=== PATIENT | male | born 1955 | race African-American/Black ===

== ENCOUNTER 2016-12-27 19:39 | Inpatient (IN) | payer MEDICARE, OTHER ==
[~2016-12-27] VITALS: Ht 175.3 cm; Wt 88.5 kg
[~2016-12-27 19:39] MED LIST: ASPIRIN81 MG ORAL; CALCIUM CARBON300 MG PO; COLACE100 MG ORAL; DOXYCYCLINE MO100 M2 PO; HYDROCORTISONE25 GM TP; LISINOPRIL5 MG ORAL; TAMSULOSIN HCL0.4 MG ORAL; TYLENOL325 MG ORAL
[2016-12-27 19:53] VITALS: BP 108/64
[2016-12-27] MEDS ORDERED: DuoNeb 0.5-3(2.5)mg/3ml neb HHN ONE (20:00)
[2016-12-27] MEDS ORDERED: Unasyn 3gm Inj ONE (20:21)
[2016-12-27] MEDS: Ampicillin/Sulbactam Sod 3 GM in NS 110 ML IV SCH (20:22)
[2016-12-27] MEDS ORDERED: DEPAKOTE250 MG PO (20:35)
[2016-12-27] MEDS ORDERED: PROSCAR5 MG ORAL (20:35)
[2016-12-27] MEDS ORDERED: MILK OF MA2400 MG/10 ORAL (20:35)
[2016-12-27] MEDS ORDERED: ATIVAN1 MG ORAL (20:35)
[2016-12-27] MEDS ORDERED: ZYPREXA5 MG ORAL (20:35)
[2016-12-27] MEDS ORDERED: TYLENOL325 MG ORAL (20:35)
[2016-12-27] MEDS ORDERED: CALCIUM500 M3 PO (20:35)
[2016-12-27 20:51] LABS: BASOPHILS % (AUTO) 1.3 % (0.0-2.0); LYMPHOCYTES % (AUTO) 14.8 % (20.0-45.0); MEAN CORPUSCULAR HEMOGLOBIN 31.3 PG (27.0-31.0); MEAN CORPUSCULAR HGB CONC 33.4 G/DL (32.0-36.0); MEAN CORPUSCULAR VOLUME 94 FL (80-99); MEAN PLATELET VOLUME 5.9 FL (6.5-10.1); MONOCYTES % (AUTO) 13.6 % (1.0-10.0); NEUTROPHILS % (AUTO) 67.3 % (45.0-75.0); PLATELET COUNT 209 K/UL (150-450); RED CELL DISTRIBUTION WIDTH 11.8 % (11.6-14.8); WHITE BLOOD COUNT 9.3 K/UL (4.8-10.8)
[2016-12-27 21:05] LABS: TROPONIN I < 0.30 ng/mL (<=0.30)
[2016-12-27 21:08] LABS: ALANINE AMINOTRANSFERASE 10 U/L (3-41); ASPARTATE AMINO TRANSFERASE 12 U/L (5-40); CALCIUM 9.4 mg/dL (8.6-10.2); CARBON DIOXIDE 29 mEQ/L (20-30); CREATININE 0.7 mg/dL (0.7-1.2); GLOMERULAR FILTRATION RATE > 60 mL/min (>60); TOTAL PROTEIN 7.1 g/dL (6.6-8.7)
[2016-12-27 21:09] LABS: ANION GAP 11 (5-15); CHLORIDE 99 mEQ/L (98-107); HEMOLYSIS 6; POTASSIUM 3.8 mEQ/L (3.4-4.9); SODIUM 139 mEQ/L (135-145)
[2016-12-27 21:18] LABS: CKMB < 1.5 ng/mL (< 6.7)
[2016-12-27 21:37] VITALS: BP 100/48
[2016-12-28] VITALS: BP 107/65
[2016-12-28] MEDS ORDERED: Milk of Magnesia 30ml Ud ORAL PRN (00:30)
[2016-12-28] MEDS: LORazepam 1mg tab ORAL PRN ×2 (00:50→09:42)
[2016-12-28] MEDS ORDERED: Unasyn 3gm Inj ONE (02:38)
[2016-12-28] MEDS: Ampicillin/Sulbactam Sod 3 GM in NS 110 ML IV SCH (02:51)
--- NOTE | 2016-12-28 04:35 | Emergency Room Report ---
History of Present Illness General Chief Complaint: General Complaint Source: Patient, Medical Record, EMS Present Illness HPI This is a 61-year-old male who presented after increased skin rash as well as increased difficulty breathing. Patient noted have prior history of COPD. He had not been taking her inhalers. He had been noted to have increased itchy rash to his face trunk and extremities. He was noted to have multiple patches of the ulcerations. The patient was then for possible impetigo. Allergies: Coded Allergies: No Known Allergies (Unverified , 05/03/15) Patient History Past Medical History: see triage record Reviewed Nursing Documentation: PMH: Agreed, PSxH: Agreed Nursing Documentation-PMH Past Medical History: No History, Except For Hx Hypertension: Yes Hx Cancer: No Hx Neurological Problems: Yes Hx Seizures: Yes Hx Weakness: Yes - LEFT ARM Review of Systems All Other Systems: negative except mentioned in HPI Physical Exam Vital Signs Date Time Temp Pulse Resp B/P Pulse Ox O2 Delivery O2 Flow Rate FiO2 12/27/16 19:33 99.9 85 16 109/66 93 Room Air Sp02 EP Interpretation: reviewed, normal General Appearance: normal inspection, well appearing, alert, GCS 15, mild distress Head: atraumatic ENT: normal ENT inspection, hearing grossly normal, normal voice Neck: normal inspection, full range of motion, supple, no bony tend Respiratory: normal inspection, normal breath sounds, no respiratory distress, no retraction, wheezing, expiration Cardiovascular #1: regular rate, rhythm, no edema Gastrointestinal: normal inspection, normal bowel sounds, non tender, soft, no guarding, no hernia Genitourinary: no CVA tenderness Musculoskeletal: normal inspection, back normal, normal range of motion Neurologic: normal inspection, alert, oriented x3, responsive, speech normal Psychiatric: normal inspection, judgement/insight normal, mood/affect normal Skin: rash - multiple excoriated ulcers to different areas. Left upper extremity appears somewhat infected. Medical Decision Making Diagnostic Impression: Primary Impression: Encounter for generalized patient complaints Additional Impressions: COPD exacerbation Cellulitis of forearm, left ER Course Patient presented for skin rash. Differential diagnosis included wasn't limited to cellulitis, impetigo, abscess, among others. Patient is also noted to have some shortness of breath consistent with COPD. Patient given breathing treatment. Patient was noted to have some improvement. Patient continued to have some difficulty with wheezing. Srinivas Yeager contacted for inpatient management due to the patient's condition and comorbidities. Labs Test 12/27/16 20:20 White Blood Count 9.3 K/UL (4.8-10.8) Red Blood Count 4.30 M/UL (4.70-6.10) Hemoglobin 13.4 G/DL (14.2-18.0) Hematocrit 40.2 % (42.0-52.0) Mean Corpuscular Volume 94 FL (80-99) Mean Corpuscular Hemoglobin 31.3 PG (27.0-31.0) Mean Corpuscular Hemoglobin Concent 33.4 G/DL (32.0-36.0) Red Cell Distribution Width 11.8 % (11.6-14.8) Platelet Count 209 K/UL (150-450) Mean Platelet Volume 5.9 FL (6.5-10.1) Neutrophils (%) (Auto) 67.3 % (45.0-75.0) Lymphocytes (%) (Auto) 14.8 % (20.0-45.0) Monocytes (%) (Auto) 13.6 % (1.0-10.0) Eosinophils (%) (Auto) 3.0 % (0.0-3.0) Basophils (%) (Auto) 1.3 % (0.0-2.0) Sodium Level 139 mEQ/L (135-145) Potassium Level 3.8 mEQ/L (3.4-4.9) Chloride Level 99 mEQ/L (98-107) Carbon Dioxide Level 29 mEQ/L (20-30) Anion Gap 11 (5-15) Blood Urea Nitrogen 9 mg/dL (7-23) Creatinine 0.7 mg/dL (0.7-1.2) Estimat Glomerular Filtration Rate > 60 mL/min (>60) Glucose Level 94 mg/dL (74-106) Lactic Acid Level 1.00 mmol/L (0.66-2.22) Calcium Level 9.4 mg/dL (8.6-10.2) Total Bilirubin 0.3 mg/dL (0.0-1.2) Aspartate Amino Transf (AST/SGOT) 12 U/L (5-40) Alanine Aminotransferase (ALT/SGPT) 10 U/L (3-41) Alkaline Phosphatase 90 U/L (40-129) Total Creatine Kinase 49 U/L (38-174) Creatine Kinase MB < 1.5 ng/mL (< 6.7) Creatine Kinase MB Relative Index Troponin I < 0.30 ng/mL (<=0.30) Total Protein 7.1 g/dL (6.6-8.7) Albumin 3.7 g/dL (3.5-5.2) Globulin 3.4 g/dL Albumin/Globulin Ratio 1.0 (1.0-2.7) Last Vital Signs Date Time Temp Pulse Resp B/P Pulse Ox O2 Delivery O2 Flow Rate FiO2 12/28/16 00:00 97.7 20 107/65 95 Room Air 12/27/16 22:50 82 Status: unchanged Disposition: ADMITTED INPATIENT Condition: Serious Referrals: Srinivas Casillas MD (PCP) Avelino Evangelista Dec 28, 2016 04:35
[2016-12-28 07:20] LABS: BASOPHILS % (AUTO) 1.1 % (0.0-2.0); EOSINOPHILS % (AUTO) 3.2 % (0.0-3.0); LYMPHOCYTES % (AUTO) 11.8 % (20.0-45.0); MEAN CORPUSCULAR HEMOGLOBIN 32.1 PG (27.0-31.0); MEAN CORPUSCULAR HGB CONC 33.4 G/DL (32.0-36.0); MEAN CORPUSCULAR VOLUME 96 FL (80-99); MEAN PLATELET VOLUME 5.8 FL (6.5-10.1); MONOCYTES % (AUTO) 12.8 % (1.0-10.0); NEUTROPHILS % (AUTO) 71.2 % (45.0-75.0); PLATELET COUNT 202 K/UL (150-450); RED BLOOD COUNT 4.26 M/UL (4.70-6.10); RED CELL DISTRIBUTION WIDTH 11.8 % (11.6-14.8); WHITE BLOOD COUNT 8.1 K/UL (4.8-10.8)
[2016-12-28 07:54] LABS: ALANINE AMINOTRANSFERASE 9 U/L (3-41); ALBUMIN/GLOBULIN RATIO 0.9 (1.0-2.7); ANION GAP 9 (5-15); ASPARTATE AMINO TRANSFERASE 12 U/L (5-40); CALCIUM 9.2 mg/dL (8.6-10.2); CARBON DIOXIDE 30 mEQ/L (20-30); CHLORIDE 102 mEQ/L (98-107); CREATININE 0.8 mg/dL (0.7-1.2); GLOMERULAR FILTRATION RATE > 60 mL/min (>60); HEMOLYSIS 7; POTASSIUM 3.4 mEQ/L (3.4-4.9); SODIUM 141 mEQ/L (135-145)
[2016-12-28 08:00] VITALS: BP 116/68
--- NOTE | 2016-12-28 08:39 | Infectious Diseases Prog Note ---
Assessment/Plan Problems: (1) Impetigo bullosa Assessment & Plan: will sart him on penicillin VK and doxycycline, and mupericion topical , consult wound care , send blood culture , and wound culture (2) COPD exacerbation Assessment & Plan: on doxycycline, and nebulizers, titrate oxygen as needed (3) Cellulitis of forearm, left Assessment & Plan: on penicillin VK and doxycycline (4) HTN (hypertension) Assessment & Plan: continue meds, monitor blood pressure (5) Seizure Assessment & Plan: continue meds. Subjective Allergies: Coded Allergies: No Known Allergies (Unverified , 05/03/15) Objective Vital Signs Last 24 Hour Vital Signs Date Time Temp Pulse Resp B/P Pulse Ox O2 Delivery O2 Flow Rate FiO2 12/28/16 00:00 97.7 20 107/65 95 Room Air 12/27/16 22:50 82 15 108/64 96 Room Air 12/27/16 21:37 98.8 73 15 100/48 96 Room Air 12/27/16 20:10 83 21 99 Room Air 12/27/16 20:00 81 22 98 Room Air 12/27/16 19:59 81 22 Room Air 12/27/16 19:53 98.8 82 15 108/64 96 Room Air 12/27/16 19:33 99.9 85 16 109/66 93 Room Air Height (Feet): 5 Height (Inches): 9.00 Weight (Pounds): 195 Laboratory Tests Test 12/27/16 20:20 12/28/16 06:55 White Blood Count 9.3 K/UL (4.8-10.8) 8.1 K/UL (4.8-10.8) Red Blood Count 4.30 M/UL (4.70-6.10) L 4.26 M/UL (4.70-6.10) L Hemoglobin 13.4 G/DL (14.2-18.0) L 13.7 G/DL (14.2-18.0) L Hematocrit 40.2 % (42.0-52.0) L 40.9 % (42.0-52.0) L Mean Corpuscular Volume 94 FL (80-99) 96 FL (80-99) Mean Corpuscular Hemoglobin 31.3 PG (27.0-31.0) H 32.1 PG (27.0-31.0) H Mean Corpuscular Hemoglobin Concent 33.4 G/DL (32.0-36.0) 33.4 G/DL (32.0-36.0) Red Cell Distribution Width 11.8 % (11.6-14.8) 11.8 % (11.6-14.8) Platelet Count 209 K/UL (150-450) 202 K/UL (150-450) Mean Platelet Volume 5.9 FL (6.5-10.1) L 5.8 FL (6.5-10.1) L Neutrophils (%) (Auto) 67.3 % (45.0-75.0) 71.2 % (45.0-75.0) Lymphocytes (%) (Auto) 14.8 % (20.0-45.0) L 11.8 % (20.0-45.0) L Monocytes (%) (Auto) 13.6 % (1.0-10.0) H 12.8 % (1.0-10.0) H Eosinophils (%) (Auto) 3.0 % (0.0-3.0) 3.2 % (0.0-3.0) H Basophils (%) (Auto) 1.3 % (0.0-2.0) 1.1 % (0.0-2.0) Sodium Level 139 mEQ/L (135-145) 141 mEQ/L (135-145) Potassium Level 3.8 mEQ/L (3.4-4.9) 3.4 mEQ/L (3.4-4.9) Chloride Level 99 mEQ/L (98-107) 102 mEQ/L (98-107) Carbon Dioxide Level 29 mEQ/L (20-30) 30 mEQ/L (20-30) Anion Gap 11 (5-15) 9 (5-15) Blood Urea Nitrogen 9 mg/dL (7-23) 13 mg/dL (7-23) Creatinine 0.7 mg/dL (0.7-1.2) 0.8 mg/dL (0.7-1.2) Estimat Glomerular Filtration Rate > 60 mL/min (>60) > 60 mL/min (>60) Glucose Level 94 mg/dL (74-106) 100 mg/dL (74-106) Lactic Acid Level 1.00 mmol/L (0.66-2.22) Calcium Level 9.4 mg/dL (8.6-10.2) 9.2 mg/dL (8.6-10.2) Total Bilirubin 0.3 mg/dL (0.0-1.2) 0.2 mg/dL (0.0-1.2) Aspartate Amino Transf (AST/SGOT) 12 U/L (5-40) 12 U/L (5-40) Alanine Aminotransferase (ALT/SGPT) 10 U/L (3-41) 9 U/L (3-41) Alkaline Phosphatase 90 U/L (40-129) 93 U/L (40-129) Total Creatine Kinase 49 U/L (38-174) Creatine Kinase MB < 1.5 ng/mL (< 6.7) Creatine Kinase MB Relative Index Troponin I < 0.30 ng/mL (<=0.30) Total Protein 7.1 g/dL (6.6-8.7) 7.0 g/dL (6.6-8.7) Albumin 3.7 g/dL (3.5-5.2) 3.4 g/dL (3.5-5.2) L Globulin 3.4 g/dL 3.6 g/dL Albumin/Globulin Ratio 1.0 (1.0-2.7) 0.9 (1.0-2.7) L Current Medications Medications (Trade) Dose Ordered Sig/Julio Route PRN Reason Start Time Stop Time Status Last Admin Dose Admin Acetaminophen (Tylenol) 325 mg Q4H PRN ORAL For Pain (pain scale 1-2) 12/28/16 00:40 01/27/17 00:29 Acetaminophen (Tylenol) 650 mg Q4H PRN ORAL Pain Scale (3-5) 12/28/16 00:30 01/27/17 00:29 Aspirin (ASA) 81 mg DAILY ORAL 12/28/16 09:00 01/27/17 08:59 Calcium Carbonate (Tums) 500 mg DAILY ORAL 12/28/16 09:00 01/27/17 08:59 Divalproex Sodium (Depakote) 500 mg TID ORAL 12/28/16 09:00 01/27/17 08:59 Docusate Sodium (Colace) 100 mg BID ORAL 12/28/16 09:00 01/27/17 08:59 Finasteride (Proscar) 5 mg DAILY ORAL 12/28/16 09:00 01/27/17 08:59 Lisinopril (Zestril) 5 mg DAILY ORAL 12/28/16 09:00 01/27/17 08:59 Lorazepam (Ativan) 1 mg Q12H PRN ORAL For Anxiety 12/28/16 00:30 01/04/17 00:29 12/28/16 00:50 Magnesium Hydroxide (Mom) 30 ml DAILY PRN ORAL Constipation 12/28/16 00:30 01/27/17 00:29 Olanzapine (ZyPREXA) 5 mg BEDTIME ORAL 12/28/16 21:00 01/27/17 20:59 Tamsulosin HCl (Flomax) 0.4 mg BEDTIME ORAL 12/28/16 21:00 01/27/17 20:59 Giovani Howell M.D. Dec 28, 2016 08:39
[2016-12-28] MEDS ORDERED: Tubing IV Secondary IV ONE (08:53)
[2016-12-28] MEDS ORDERED: NS 550ML IV ONE (08:53)
--- NOTE | 2016-12-28 09:04 | Diagnostic Imaging Report ---
Indications: Shortness of breath Technique: Portable AP chest Findings: Comparison: 05/03/2015 Pulmonary inflation has decreased. Right upper lobe volume loss with parenchymal scarring and adjacent apical pleural thickening unchanged. Linear densities have increased in the left lung base. Cardiac silhouette now virtually completely obscured. Central pulmonary vasculature remains prominent. Peripheral pulmonary vasculature remains within normal limits. No new abnormality identified. IMPRESSION: Increase in subsegmental atelectasis in left lung base with decrease in inspiration No other evidence of acute disease, limited as described. Additional basal abnormalities may be missed. Upright PA and lateral chest radiographs with better inspiratory effort and optimal technique recommended for more complete evaluation.. Stable right apical pleural/parenchymal disease as described, likely chronic inflammatory/postinflammatory
[2016-12-28] MEDS: Aspirin Baby 81mg ORAL SCH (09:23)
[2016-12-28] MEDS: Tums 500mg ORAL SCH (09:23)
[2016-12-28] MEDS: Docusate 100mg cap ORAL SCH ×2 (09:24→18:49)
[2016-12-28] MEDS: Lisinopril 2.5mg tab ORAL SCH (09:24)
[2016-12-28] MEDS: Depakote 500mg tab ORAL SCH ×3 (09:25→18:49)
[2016-12-28 12:00] VITALS: BP 120/70
[2016-12-28 16:00] VITALS: BP 124/79
--- NOTE | 2016-12-28 18:15 | Consultation ---
DATE OF CONSULTATION: 12/28/2016 INFECTIOUS DISEASE CONSULTATION REQUESTING PHYSICIAN: Srinivas Casillas M.D. REASON FOR CONSULTATION: Multiple skin ulcer with infection and bullae recommendation for antibiotics treatment. HISTORY OF PRESENT ILLNESS: The patient is a 61-year-old male with history of hypertension, seizures, and COPD, who was sent from group home facility for increased skin rash with bullae and multiple skin wounds. The patient also was noticed to have difficulty breathing with history of COPD, so he was sent to the emergency room for evaluation. The patient has been itching his skin as per the staff and he developed multiple red spots with bullae, which ulcerate and is behind infected wounds seems compatible with bullous impetigo, so he was admitted to the hospital for evaluation of his skin wound infection and I was consulted by the primary provider for antibiotics recommendation and further care. As of note, the patient is a poor historian, could not give good history. History was mainly obtained from the medical record. PAST MEDICAL HISTORY: Significant for hypertension, seizure disorder, left arm weakness, and chronic obstructive pulmonary disease. PAST SURGICAL HISTORY: Negative. MEDICATIONS: The patient received Unasyn in the emergency room. For the rest of his medications, please refer to [facility]. ALLERGIES: He has no known drug allergy. FAMILY HISTORY: Noncontributory. SOCIAL HISTORY: He lives at group home facility. No recent drugs, tobacco, or alcohol. REVIEW OF SYSTEMS: Unable to obtain. The patient is poor historian. Cannot provide good history. LABORATORY DATA: Labs showed white count of 8.1, hemoglobin of 13.7, and platelet count of 202,000. BUN of 13 and creatinine of 0.8. Images none in the system yet. PHYSICAL EXAMINATION: GENERAL: In general, middle-aged male, up in bed, awake and alert, not in distress. Follow commands. VITAL SIGNS: Temperature 97.7 degrees, respirations 20, blood pressure 107/65, and pulse oximetry 95% on room air. HEENT: Normocephalic and atraumatic. He has a facial skin wounds with cellulitis. Pupils are reactive to light equally. Dry oral mucosa. Poor dental hygiene. NECK: Supple. No lymphadenopathy. CARDIOVASCULAR: Regular rate and rhythm. No murmur or gallop. LUNGS: Clear bilaterally. No wheezing or rhonchi. ABDOMEN: Soft, nontender, and nondistended. Positive bowel sounds. No hepatosplenomegaly or ascites. EXTREMITIES: No edema or cyanosis. Wound multiple skin wounds infected with cellulitis. SKIN: He had multiple bullae of the skin mainly on his trunk and multiple wounds on his legs and arms complicated with infection compatible with impetigo. ASSESSMENT AND RECOMMENDATIONS: 1. Impetigo bullosa. We will start patient on penicillin G and doxycycline with bactroban ointment. Consult wound care. Send blood culture and wound culture. 2. Chronic obstructive pulmonary disease exacerbation. The patient will be on doxycycline. Continue nebulizer. Titrate oxygen as needed. 3. Cellulitis of the left arm. The patient already on antibiotics treatment, which will cover cellulitis. 4. Hypertension. Continue medication. Monitor blood pressure. 5. Seizure disorder. Continue medications. Consult Neurology. Giovani Howell M.D. DR: TANGELA JOB#: [id number] CC: FAUSTINA
[2016-12-28 20:00] VITALS: BP 104/53
[2016-12-28] MEDS: Tamsulosin 0.4mg cap ORAL SCH (22:05)
[2016-12-29] VITALS: BP 102/57
[2016-12-29 04:00] VITALS: BP 109/54
--- NOTE | 2016-12-29 06:45 | History and Physical Report ---
DATE OF ADMISSION: 12/27/2016 NOTE: "POOR AUDIO QUALITY" HISTORY OF PRESENT ILLNESS: . The patient has a history of COPD. Poor historian. The patient has facial cellulitis in the lower extremity . PAST MEDICAL HISTORY: , history of hypernatremia . MEDICATIONS: Tylenol, aspirin, calcium, Depakote, Colace, finasteride, lisinopril, lorazepam, magnesium, olanzapine, and Flomax. FAMILY HISTORY: Noncontributory. SOCIAL HISTORY: Unable to obtain. REVIEW OF SYSTEMS: Unable to obtain. Poor historian. PHYSICAL EXAMINATION: VITAL SIGNS: Temperature 97.7 degrees, pulse 82, and blood pressure 107/65. HEENT: PERRLA. NECK: Supple. No lymphadenopathy. . extremity. Therefore, for the complete skin integrity report refer to the nursing notes. CHEST: Clear to auscultation. CARDIOVASCULAR: Regular rate and rhythm. GASTROINTESTINAL: Soft. Positive bowel sounds. EXTREMITIES: He does have contractures. Reflexes are equal on both sides. NEUROLOGIC: . The patient does have contractures. LABORATORY DATA: WBC of 9.3, hemoglobin 13.4, and platelets of 209,000. Sodium 139, potassium 3.8, BUN of 9, and creatinine 0.7. Glucose of 94. ASSESSMENT AND PLAN: The patient possible lower extremity. . I have consulted Dr. Howell and Dr. Orta for the above-mentioned diagnoses and treatment. Srinivas Casillas M.D. DR: YAZAN JOB#: [id number] CC:
[2016-12-29 08:00] VITALS: BP 117/73
[2016-12-29] MEDS: Tums 500mg ORAL SCH (09:02)
[2016-12-29] MEDS: Depakote 500mg tab ORAL SCH ×3 (09:02→18:16)
[2016-12-29] MEDS: Docusate 100mg cap ORAL SCH ×2 (09:03→18:16)
[2016-12-29] MEDS: LORazepam 1mg tab ORAL PRN (09:03)
[2016-12-29] MEDS: Lisinopril 2.5mg tab ORAL SCH (09:03)
[2016-12-29] MEDS: Aspirin Baby 81mg ORAL SCH (09:05)
[2016-12-29 12:00] VITALS: BP 109/70
--- NOTE | 2016-12-29 15:38 | Infectious Diseases Prog Note ---
Assessment/Plan Problems: (1) Impetigo bullosa Assessment & Plan: on penicillin VK and doxycycline, with local mupirocin , continue wound care , await blood culture , and wound culture (2) COPD exacerbation Assessment & Plan: on doxycycline, and nebulizers, titrate oxygen as needed (3) Cellulitis of forearm, left Assessment & Plan: on penicillin VK and doxycycline (4) HTN (hypertension) Assessment & Plan: continue meds, monitor blood pressure (5) Seizure Assessment & Plan: continue meds. Subjective ROS Limited/Unobtainable: Yes Allergies: Coded Allergies: No Known Allergies (Unverified , 05/03/15) Subjective he was up in bed, awake and alert, but confused, and not coherent. wounds looks better Objective Vital Signs Last 24 Hour Vital Signs Date Time Temp Pulse Resp B/P Pulse Ox O2 Delivery O2 Flow Rate FiO2 12/29/16 12:00 97.7 72 20 109/70 96 Room Air 12/29/16 09:03 117/73 12/29/16 08:00 97.3 79 20 117/73 95 Room Air 12/29/16 04:00 97.2 60 18 109/54 93 Room Air 12/29/16 00:00 97.9 59 18 102/57 93 Room Air 12/28/16 20:00 98.1 76 18 104/53 93 Room Air 12/28/16 16:00 98.0 73 20 124/79 99 Room Air Height (Feet): 5 Height (Inches): 9.00 Weight (Pounds): 195 General Appearance: WD/WN, no acute distress HEENT: normocephalic, atraumatic, anicteric, mucous membranes moist, PERRL, supple, no JVD Respiratory/Chest: chest wall non-tender, lungs clear, normal breath sounds, no respiratory distress, no accessory muscle use, decreased breath sounds Cardiovascular: normal peripheral pulses, normal rate, regular rhythm, no gallop/murmur, no JVD Abdomen: normal bowel sounds, soft, non tender, no organomegaly, non distended , no mass Extremities: no cyanosis, no clubbing, other - wounds with cellulitis Skin: no rash, ulcers Microbiology Date/Time Source Procedure Growth Status 12/27/16 20:45 Blood Blood Culture - Preliminary NO GROWTH AFTER 24 HOURS Resulted 12/27/16 20:20 Blood Blood Culture - Preliminary NO GROWTH AFTER 24 HOURS Resulted Current Medications Medications (Trade) Dose Ordered Sig/Julio Route PRN Reason Start Time Stop Time Status Last Admin Dose Admin Acetaminophen (Tylenol) 325 mg Q4H PRN ORAL For Pain (pain scale 1-2) 12/28/16 00:40 01/27/17 00:29 Acetaminophen (Tylenol) 650 mg Q4H PRN ORAL Pain Scale (3-5) 12/28/16 00:30 01/27/17 00:29 Aspirin (ASA) 81 mg DAILY ORAL 12/28/16 09:00 01/27/17 08:59 12/29/16 09:05 Calcium Carbonate (Tums) 500 mg DAILY ORAL 12/28/16 09:00 01/27/17 08:59 12/29/16 09:02 Divalproex Sodium (Depakote) 500 mg TID ORAL 12/28/16 09:00 01/27/17 08:59 12/29/16 13:00 Docusate Sodium (Colace) 100 mg BID ORAL 12/28/16 09:00 01/27/17 08:59 12/29/16 09:03 Doxycycline Monohydrate (Vibramycin) 100 mg Q12HR@1100,2300 ORAL 12/28/16 11:00 01/04/17 10:59 12/29/16 09:02 Finasteride (Proscar) 5 mg DAILY ORAL 12/28/16 09:00 01/27/17 08:59 12/29/16 09:08 Lisinopril (Zestril) 5 mg DAILY ORAL 12/28/16 09:00 01/27/17 08:59 12/29/16 09:03 Lorazepam (Ativan) 1 mg Q12H PRN ORAL For Anxiety 12/28/16 00:30 01/04/17 00:29 12/29/16 09:03 Magnesium Hydroxide (Mom) 30 ml DAILY PRN ORAL Constipation 12/28/16 00:30 01/27/17 00:29 Mupirocin (Bactroban Oint) 1 applic THREE TIMES A DAY TOPIC 12/28/16 10:00 01/02/17 09:59 12/29/16 13:12 Olanzapine (ZyPREXA) 5 mg BEDTIME ORAL 12/28/16 21:00 01/27/17 20:59 12/28/16 22:05 Penicillin V Potassium (Penicillin V Potassium) 500 mg Q6HR ORAL 12/28/16 11:00 01/04/17 10:59 12/29/16 13:12 Tamsulosin HCl (Flomax) 0.4 mg BEDTIME ORAL 12/28/16 21:00 01/27/17 20:59 12/28/16 22:05 Giovani Howell M.D. Dec 29, 2016 15:38
[2016-12-29 16:00] VITALS: BP 110/71
[2016-12-29 20:00] VITALS: BP 107/67
--- NOTE | 2016-12-29 20:36 | General Progress Note ---
Assessment/Plan Problem List: (1) Cellulitis of forearm, left ICD Codes: L03.114 - Cellulitis of left upper limb SNOMED: 27284812 (2) Seizure ICD Codes: R56.9 - Unspecified convulsions SNOMED: 92631978 (3) HTN (hypertension) ICD Codes: I10 - Essential (primary) hypertension SNOMED: 47011374 (4) Impetigo bullosa ICD Codes: L01.03 - Bullous impetigo SNOMED: 855381553 Status: progressing Assessment/Plan abx per id afebrile fascial cellulitis demented cellulitis imrpoving poor historian hd stable Subjective ROS Limited/Unobtainable: Yes Allergies: Coded Allergies: No Known Allergies (Unverified , 05/03/15) Objective Last 24 Hour Vital Signs Date Time Temp Pulse Resp B/P Pulse Ox O2 Delivery O2 Flow Rate FiO2 12/29/16 16:00 97.0 72 20 110/71 97 Room Air 12/29/16 12:00 97.7 72 20 109/70 96 Room Air 12/29/16 09:03 117/73 12/29/16 08:00 97.3 79 20 117/73 95 Room Air 12/29/16 04:00 97.2 60 18 109/54 93 Room Air 12/29/16 00:00 97.9 59 18 102/57 93 Room Air Intake and Output 12/28/16 12/29/16 19:00 07:00 Intake Total 1600 ml Balance 1600 ml Intake Oral 1600 ml # Voids 6 2 Height (Feet): 5 Height (Inches): 9.00 Weight (Pounds): 195 Cardiovascular: normal rate Respiratory/Chest: lungs clear Srinivas Casillas MD Dec 29, 2016 20:36
[2016-12-29] MEDS: Tamsulosin 0.4mg cap ORAL SCH (22:38)
[2016-12-30] VITALS: BP 108/68
--- NOTE | 2016-12-30 00:02 | Wound Care Consultation ---
Wound Assessment Wound Assessment : Wound Present on Admission: Yes New Wound: No Status Change of Wound: No Wound Type: scab - multiple self inflicted scratches Silas Test: Does not Silas Wound Thickness: Full Thickness Percent of Wound [place]/Red: 100 Wound Drainage Description: Serosanguineous Wound Drainage Amount: Scant Wound Drainage Odor: None/Absent Tissue Surrounding Wound: Intact Wound General Appearance: Reddened Wound Comment #1 Multiple dry scabs and open self inflicted scratches all over Pt's body Recommendation -Keep clean and dry -Optimize nutrition -Assess and f/u with MD for any changes NATHALIA TRUJILLO RN Dec 30, 2016 00:02
[2016-12-30] MEDS: LORazepam 1mg tab ORAL PRN ×2 (00:23→15:39)
[2016-12-30 04:00] VITALS: BP 102/62
[2016-12-30 08:00] VITALS: BP 114/66
[2016-12-30] MEDS: Aspirin Baby 81mg ORAL SCH (09:35)
[2016-12-30] MEDS: Lisinopril 2.5mg tab ORAL SCH (09:35)
[2016-12-30] MEDS: Docusate 100mg cap ORAL SCH ×2 (09:36→18:16)
[2016-12-30] MEDS: Tums 500mg ORAL SCH (09:36)
[2016-12-30] MEDS: Depakote 500mg tab ORAL SCH ×3 (09:36→18:16)
[2016-12-30 12:00] VITALS: BP 121/69
--- NOTE | 2016-12-30 14:40 | Infectious Diseases Prog Note ---
Assessment/Plan Problems: (1) Impetigo bullosa Assessment & Plan: improving on penicillin VK and doxycycline, with local mupirocin , continue wound care , await blood culture , and wound culture (2) COPD exacerbation Assessment & Plan: on doxycycline, and nebulizers, titrate oxygen as needed (3) Cellulitis of forearm, left Assessment & Plan: on penicillin VK and doxycycline (4) HTN (hypertension) Assessment & Plan: continue meds, monitor blood pressure (5) Seizure Assessment & Plan: continue meds. Subjective Constitutional: Reports: fatigue HEENT: Reports: no symptoms Respiratory: Reports: no symptoms Breasts: Reports: no symptoms Cardiovascular: Reports: no symptoms Gastrointestinal/Abdominal: Reports: no symptoms Genitourinary: Reports: no symptoms Neurologic: Reports: confusion Psychiatric: Reports: depression Skin: Reports: other - wounds, ulcer Endocrine: Reports: no symptoms Hematologic: Reports: no symptoms Allergies: Coded Allergies: No Known Allergies (Unverified , 05/03/15) Subjective he was up in bed, awake and alert, but confused, and not coherent. wounds looks better Objective Vital Signs Last 24 Hour Vital Signs Date Time Temp Pulse Resp B/P Pulse Ox O2 Delivery O2 Flow Rate FiO2 12/30/16 12:00 98.0 76 20 121/69 96 Room Air 12/30/16 09:35 114/66 12/30/16 08:00 97.0 79 20 114/66 96 Room Air 12/30/16 04:00 97.3 82 20 102/62 95 Room Air 12/30/16 00:00 97.3 68 20 108/68 96 Room Air 12/29/16 20:00 97.7 70 20 107/67 96 Room Air 12/29/16 16:00 97.0 72 20 110/71 97 Room Air Height (Feet): 5 Height (Inches): 9.00 Weight (Pounds): 195 General Appearance: WD/WN, no acute distress HEENT: normocephalic, atraumatic, anicteric, mucous membranes moist, PERRL, EOMI, pharynx normal, supple, no JVD Respiratory/Chest: chest wall non-tender, lungs clear, normal breath sounds, no respiratory distress, no accessory muscle use Cardiovascular: normal peripheral pulses, normal rate, regular rhythm, no gallop/murmur, no JVD Abdomen: normal bowel sounds, soft, non tender, no organomegaly, non distended , no mass, no scars Extremities: no cyanosis, no clubbing Skin: no rash, no lesions, ulcers Neurologic/Psychiatric: alert, oriented x 3 Lymphatic: no neck adenopathy, no groin adenopathy Musculoskeletal: normal muscle bulk Microbiology Date/Time Source Procedure Growth Status 12/27/16 20:45 Blood Blood Culture - Preliminary NO GROWTH AFTER 48 HOURS Resulted 12/27/16 20:20 Blood Blood Culture - Preliminary NO GROWTH AFTER 48 HOURS Resulted 12/27/16 21:08 Nasal Nares MRSA Culture - Final NO METHICILLIN RESISTANT STAPH AUREUS... Complete 12/29/16 06:00 Shoulder Right Gram Stain - Final Resulted 12/29/16 06:00 Shoulder Right Wound Culture Pending Resulted 12/27/16 21:08 Rectum VRE Culture - Final NO VANCOMYCIN RESISTANT ENTEROCOCCUS ... Complete Current Medications Medications (Trade) Dose Ordered Sig/Julio Route PRN Reason Start Time Stop Time Status Last Admin Dose Admin Acetaminophen (Tylenol) 325 mg Q4H PRN ORAL For Pain (pain scale 1-2) 12/28/16 00:40 01/27/17 00:29 Acetaminophen (Tylenol) 650 mg Q4H PRN ORAL Pain Scale (3-5) 12/28/16 00:30 01/27/17 00:29 Aspirin (ASA) 81 mg DAILY ORAL 12/28/16 09:00 01/27/17 08:59 12/30/16 09:35 Calcium Carbonate (Tums) 500 mg DAILY ORAL 12/28/16 09:00 01/27/17 08:59 12/30/16 09:36 Divalproex Sodium (Depakote) 500 mg TID ORAL 12/28/16 09:00 01/27/17 08:59 12/30/16 14:13 Docusate Sodium (Colace) 100 mg BID ORAL 12/28/16 09:00 01/27/17 08:59 12/30/16 09:36 Doxycycline Monohydrate (Vibramycin) 100 mg Q12HR@1100,2300 ORAL 12/28/16 11:00 01/04/17 10:59 12/30/16 11:51 Finasteride (Proscar) 5 mg DAILY ORAL 12/28/16 09:00 01/27/17 08:59 12/30/16 09:36 Lisinopril (Zestril) 5 mg DAILY ORAL 12/28/16 09:00 01/27/17 08:59 12/30/16 09:35 Lorazepam (Ativan) 1 mg Q12H PRN ORAL For Anxiety 12/28/16 00:30 01/04/17 00:29 12/30/16 00:23 Magnesium Hydroxide (Mom) 30 ml DAILY PRN ORAL Constipation 12/28/16 00:30 01/27/17 00:29 Mupirocin (Bactroban Oint) 1 applic THREE TIMES A DAY TOPIC 12/28/16 10:00 01/02/17 09:59 12/30/16 14:13 Olanzapine (ZyPREXA) 5 mg BEDTIME ORAL 12/28/16 21:00 01/27/17 20:59 12/29/16 22:38 Penicillin V Potassium (Penicillin V Potassium) 500 mg Q6HR ORAL 12/28/16 11:00 01/04/17 10:59 12/30/16 11:51 Tamsulosin HCl (Flomax) 0.4 mg BEDTIME ORAL 12/28/16 21:00 01/27/17 20:59 12/29/16 22:38 Giovani Howell M.D. Dec 30, 2016 14:40
[2016-12-30 20:00] VITALS: BP 120/70
[2016-12-30] MEDS: Tamsulosin 0.4mg cap ORAL SCH (21:03)
--- NOTE | 2016-12-30 21:21 | General Progress Note ---
Assessment/Plan Problem List: (1) Cellulitis of forearm, left ICD Codes: L03.114 - Cellulitis of left upper limb SNOMED: 92475493 (2) Seizure ICD Codes: R56.9 - Unspecified convulsions SNOMED: 42485259 (3) HTN (hypertension) ICD Codes: I10 - Essential (primary) hypertension SNOMED: 79042336 (4) Impetigo bullosa ICD Codes: L01.03 - Bullous impetigo SNOMED: 763614696 Status: progressing Assessment/Plan abx per id afebrile fascial cellulitis vitals stable celluitis improving dc planning htn Subjective ROS Limited/Unobtainable: Yes Allergies: Coded Allergies: No Known Allergies (Unverified , 05/03/15) Objective Last 24 Hour Vital Signs Date Time Temp Pulse Resp B/P Pulse Ox O2 Delivery O2 Flow Rate FiO2 12/30/16 20:00 97.2 86 20 120/70 96 Room Air 12/30/16 12:00 98.0 76 20 121/69 96 Room Air 12/30/16 09:35 114/66 12/30/16 08:00 97.0 79 20 114/66 96 Room Air 12/30/16 04:00 97.3 82 20 102/62 95 Room Air 12/30/16 00:00 97.3 68 20 108/68 96 Room Air Intake and Output 12/29/16 12/30/16 19:00 07:00 Intake Total 400 ml Balance 400 ml Intake Oral 400 ml # Voids 6 3 # Bowel Movements 1 Height (Feet): 5 Height (Inches): 9.00 Weight (Pounds): 195 Cardiovascular: normal peripheral pulses Respiratory/Chest: lungs clear Srinivas Casillas MD Dec 30, 2016 21:21
--- NOTE | 2016-12-30 22:33 | Consultation ---
History of Present Illness General Chief Complaint: General Complaint Present Illness HPI 61-year-old male with history of hypertension, seizures, and COPD, who was sent from [facility] facility for increased skin rash with bullae and multiple skin wounds. the pt is on 1:1, wanders and is disorganized. the pt was unable to participate and answer the questions. the pt is easily agitated. Allergies: Coded Allergies: No Known Allergies (Unverified , 05/03/15) Medication History Scheduled Aspirin* (Aspirin*), 81 MG ORAL DAILY, (Reported) Calcium Carbonate (Calcium), 500 MG PO DAILY, (Reported) Divalproex Sodium* (Depakote*), 500 MG PO THREE TIMES A DAY, (Reported) Docusate Sodium* (Colace*), 100 MG ORAL BID, (Reported) Doxycycline Monohydrate (Doxycycline Monohydrate), 100 MG PO BID, (Reported) Finasteride* (Proscar*), 5 MG ORAL DAILY, (Reported) Hc/Mineral Oil/Petrolat,Wht 1% (Hydrocortisone 1% Absorbase), 25 GM TP DAILY, ( Reported) Lisinopril (Lisinopril*), 5 MG ORAL DAILY, (Reported) Olanzapine* (Zyprexa*), 5 MG ORAL BEDTIME, (Reported) Tamsulosin Hcl (Tamsulosin Hcl*), 0.4 MG ORAL BEDTIME, (Reported) Scheduled PRN Acetaminophen (Tylenol), 325 MG ORAL Q4HR PRN for For Pain, (Reported) Acetaminophen (Tylenol), 650 MG ORAL Q4HR PRN for Pain Scale (3-5), (Reported) Lorazepam* (Ativan*), 1 MG ORAL EVERY 12 HOURS PRN for For Anxiety, (Reported) Magnesium Hydroxide* (Milk Of Magnesia*), 30 ML ORAL DAILY PRN for Constipation, (Reported) Miscellaneous Medications Calcium Carbonate (Calcium Carbonate), 500 MG PO, (Reported) Patient History History Provided By: Patient, Medical Record, PMD Healthcare decision maker Resuscitation status Full Code Advanced Directive on File Yes Past Medical/Surgical History Past Medical/Surgical History: (1) Hyponatremia (2) Cellulitis of forearm, left (3) Encounter for generalized patient complaints (4) Impetigo bullosa (5) COPD exacerbation (6) Seizure (7) HTN (hypertension) Review of Systems Constitutional: Reports: malaise, weakness Psychiatric: Reports: anxiety, depressed feelings, emotional problems, hallucinations, prior hx Physical Exam General Appearance: no apparent distress, alert, confused, agitated Neurologic: alert, disoriented, unresponsiveness, depressed affect Last 24 Hour Vital Signs Date Time Temp Pulse Resp B/P Pulse Ox O2 Delivery O2 Flow Rate FiO2 12/30/16 20:00 97.2 86 20 120/70 96 Room Air 12/30/16 12:00 98.0 76 20 121/69 96 Room Air 12/30/16 09:35 114/66 12/30/16 08:00 97.0 79 20 114/66 96 Room Air 12/30/16 04:00 97.3 82 20 102/62 95 Room Air 12/30/16 00:00 97.3 68 20 108/68 96 Room Air Intake and Output 12/29/16 12/30/16 19:00 07:00 Intake Total 400 ml Balance 400 ml Intake Oral 400 ml # Voids 6 3 # Bowel Movements 1 Height (Feet): 5 Height (Inches): 9.00 Weight (Pounds): 195 Medications Current Medications Medications (Trade) Dose Ordered Sig/Julio Route PRN Reason Start Time Stop Time Status Last Admin Dose Admin Acetaminophen (Tylenol) 325 mg Q4H PRN ORAL For Pain (pain scale 1-2) 12/28/16 00:40 01/27/17 00:29 Acetaminophen (Tylenol) 650 mg Q4H PRN ORAL Pain Scale (3-5) 12/28/16 00:30 01/27/17 00:29 Aspirin (ASA) 81 mg DAILY ORAL 12/28/16 09:00 01/27/17 08:59 12/30/16 09:35 Calcium Carbonate (Tums) 500 mg DAILY ORAL 12/28/16 09:00 01/27/17 08:59 12/30/16 09:36 Divalproex Sodium (Depakote) 500 mg TID ORAL 12/28/16 09:00 01/27/17 08:59 12/30/16 18:16 Docusate Sodium (Colace) 100 mg BID ORAL 12/28/16 09:00 01/27/17 08:59 12/30/16 18:16 Doxycycline Monohydrate (Vibramycin) 100 mg Q12HR@1100,2300 ORAL 12/28/16 11:00 01/04/17 10:59 12/30/16 11:51 Finasteride (Proscar) 5 mg DAILY ORAL 12/28/16 09:00 01/27/17 08:59 12/30/16 09:36 Lisinopril (Zestril) 5 mg DAILY ORAL 12/28/16 09:00 01/27/17 08:59 12/30/16 09:35 Lorazepam (Ativan) 1 mg Q12H PRN ORAL For Anxiety 12/28/16 00:30 01/04/17 00:29 12/30/16 15:39 Magnesium Hydroxide (Mom) 30 ml DAILY PRN ORAL Constipation 12/28/16 00:30 01/27/17 00:29 Mupirocin (Bactroban Oint) 1 applic THREE TIMES A DAY TOPIC 12/28/16 10:00 01/02/17 09:59 12/30/16 18:16 Olanzapine (ZyPREXA) 5 mg BEDTIME ORAL 12/28/16 21:00 01/27/17 20:59 12/30/16 21:03 Penicillin V Potassium (Penicillin V Potassium) 500 mg Q6HR ORAL 12/28/16 11:00 01/04/17 10:59 12/30/16 18:16 Tamsulosin HCl (Flomax) 0.4 mg BEDTIME ORAL 12/28/16 21:00 01/27/17 20:59 12/30/16 21:03 Assessment/Plan Status: not improved Assessment/Plan schizoaffective d/o Depakote er 2000mg qhs zyprexa 15 mg qhs Ran Jsaso M.D. Dec 30, 2016 22:33
[2016-12-31 00:03] VITALS: BP 94/54
[2016-12-31 04:00] VITALS: BP 104/56
[2016-12-31] MEDS: LORazepam 1mg tab ORAL PRN (06:07)
[2016-12-31 08:08] VITALS: BP 115/63
[2016-12-31] MEDS: Aspirin Baby 81mg ORAL SCH (08:33)
[2016-12-31] MEDS: Docusate 100mg cap ORAL SCH (08:33)
[2016-12-31] MEDS: Tums 500mg ORAL SCH (08:34)
[2016-12-31 08:35] VITALS: BP 115/63
[2016-12-31] MEDS: Lisinopril 2.5mg tab ORAL SCH (08:35)
[2016-12-31] MEDS ORDERED: PENICILLIN V P250 MG PO (10:36)
--- NOTE | 2016-12-31 15:12 | Cardiology Report ---
APPROVED REPORT EKG Measurement Heart [id number] Normal sinus rhythm Normal ECG
--- NOTE | 2016-12-31 17:51 | General Progress Note ---
Assessment/Plan Status: doing well, stable Assessment/Plan -cont current meds provided ro/st Subjective Neurologic/Psychiatric: Reports: anxiety, depressed, emotional problems Allergies: Coded Allergies: No Known Allergies (Unverified , 05/03/15) Subjective the pt is on 1:1, wanders and is disorganized. the pt was unable to participate and answer the questions. the pt is easily agitated. Objective Last 24 Hour Vital Signs Date Time Temp Pulse Resp B/P Pulse Ox O2 Delivery O2 Flow Rate FiO2 12/31/16 08:35 115/63 12/31/16 08:08 97.6 73 23 115/63 99 Room Air 12/31/16 04:00 97.2 63 20 104/56 94 Room Air 12/31/16 00:03 97.3 67 20 94/54 96 Room Air 12/30/16 20:00 97.2 86 20 120/70 96 Room Air Intake and Output 12/30/16 12/31/16 19:00 07:00 Intake Total 1500 ml 2500 ml Balance 1500 ml 2500 ml Intake Oral 1500 ml 2500 ml # Voids 3 4 Height (Feet): 5 Height (Inches): 9.00 Weight (Pounds): 195 General Appearance: alert, confused Neurologic: disoriented, unresponsive, depressed affect Ran Jasso M.D. Dec 31, 2016 17:51
[2016-12-31] MEDS ORDERED: Depakote ER 500mg tab ORAL SCH (21:00)
--- NOTE | 2017-01-02 10:02 | Discharge Summary ---
Discharge Summary Hospital Course Date of Admission Dec 27, 2016 at 20:44 Date of Discharge Dec 31, 2016 at 12:10 Admitting Diagnosis copd exacerbation, left upper extremity infected HPI Jaya Murrell is a 61 year old male who was admitted on Dec 27, 2016 at 20:44 for Copd,Exacerbation,Left Upper Extemity Infected Hospital Course [id number] Discharge Discharge Disposition Patient was discharged to SNF/Subacute Facility(03) Discharge Diagnoses: Hazel Villanueva NP Jan 02, 2017 10:02
--- NOTE | 2017-01-03 03:15 | Discharge Summary 2 SIG ---
DATE OF ADMISSION: 12/27/2016 DATE OF DISCHARGE: 12/31/2016 CONSULTANTS: 1. Ran Jasso M.D. 2. Giovani Howell M.D. BRIEF HOSPITAL COURSE: The patient is a 61-year-old male, presented to ED for evaluation of skin rash and difficulty breathing. He has a history of COPD and has not been taking his inhalers. He was noted to have multiple patches of ulcerations and itchy rash to the face, trunk and extremities. On evaluation at ED, the patient had shortness of breath consistent with COPD. He was given breathing treatments with some improvement. He continued to have difficulty of breathing with wheezing. The patient was then admitted to medical floor for COPD exacerbation and impetigo. He was seen by Dr. Howell and was started on penicillin G and doxycycline with topical Bactroban ointment. He was also noted to have cellulitis on the left arm with multiple skin wounds. He was pancultured. Blood culture did not isolate any growth. Wound culture showed growth of coagulase-negative Staph and gram-positive organisms. The patient was agitated and was wondering and was disorganized. Sitter was provided. He had psychiatric evaluation with Dr. Jasso and was diagnosed to have schizoaffective disorder. He was given Depakote ER 2000 mg at bedtime and Zyprexa 50 mg at bedtime. Cellulitis was responding with medications and was improving. He was given local wound care. He was eventually discharged back to SNF. FINAL DIAGNOSES: 1. Impetigo bullosa. 2. Acute chronic obstructive pulmonary disease exacerbation. 3. Cellulitis of the left forearm. 4. Hypertension. 5. Seizure disorder. 6. Schizoaffective disorder. 7. Hypertension. Srinivas Casillas M.D. I have been assigned to dictate discharge summary on this account and I was not involved in the patient's management. Hazel Villanueva N.P. DR: COLE JOB#: [id number] CC:
== END 2016-12-31 12:10 | DRG 603 ==
LOC: EDBD 19:39 → EMR 20:31 → 4E 20:44 → EDBEDREQ 21:07 → 4E 12-30 09:32
DX: L01.03 Bullous impetigo (principal); J44.1 Chronic obstructive pulmonary disease with (acute) exacerbation; R56.9 Unspecified convulsions; L03.114 Cellulitis of left upper limb; I10 Essential (primary) hypertension; F25.9 Schizoaffective disorder, unspecified
CPT/HCPCS: 36415; 71010; 80053; 82550; 82553; 83605; 84484; 85025; 87040; 87070; 87081; 87205; 93005; 94640; 94664; J7620